=== PATIENT | male | born 1985 | race Two or more races ===

== ENCOUNTER 2025-01-05 12:21 | Emergency (ER) | payer MEDICAID, SELFPAY ==
[2025-01-05 12:44] VITALS: BP 157/96; PULSE 71; RESP 16; TEMP 36.9; O2SAT 95; BMI 28.5
--- NOTE | 2025-01-05 12:54 | XR_ITS ---
Examination: PA chest single view Technique: Upright PA chest single view Exam date and time: January 05, 2025 1312 hrs. Indications: Has ascites exposure 5 days ago followed by illness Findings: Normal heart size No pneumonia or pulmonary edema Intact osseous structures Impression: No pneumonia or pulmonary edema
--- NOTE | 2025-01-05 12:56 | PD.EDADULT ---
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 Has been having symptoms of being sick, described as body aches, joint pains, dizziness, fevers, for the last 1 to 2 weeks. Patient went to different emergency room, blood drawn and test were done and all came back normal. Patient denies any sore throat, chest pain, abdominal pain, diarrhea constipation or other complaints. No medication was taken prior travel. Related Data Home Medications ?Medication ?Instructions ?Recorded ?Confirmed benztropine 2 mg tablet 2 mg PO BID 09/09/20 09/09/20 bupropion HCl 300 mg 24 hr tablet, 300 mg PO QDAY 09/09/20 09/09/20 extended release clomipramine 50 mg capsule 100 mg PO HS 09/09/20 09/09/20 clonazepam 1 mg tablet 1 mg PO TID PRN Anxiety 09/09/20 09/09/20 diphenhydramine HCl 50 mg capsule 50 mg PO BID PRN Allergy Symptoms 09/09/20 09/09/20 (Banophen) fluoxetine 40 mg capsule 40 mg PO QDAY 09/09/20 09/09/20 haloperidol 10 mg tablet 10 mg PO BID 09/09/20 09/09/20 lithium carbonate 300 mg tablet 300 mg PO QAM 09/09/20 09/09/20 lithium carbonate 300 mg tablet 600 mg PO HS 09/09/20 09/09/20 propranolol 10 mg tablet 10 mg PO TID 09/09/20 09/09/20 quetiapine 400 mg tablet 800 mg PO HS 09/09/20 09/09/20 Previous Rx's ?Medication ?Instructions ?Recorded ciprofloxacin HCl 500 mg tablet 500 mg PO BID #20 tabs 09/05/20 metronidazole 500 mg tablet 500 mg PO QID #40 tabs 09/05/20 clindamycin HCl 300 mg capsule 300 mg PO TID #15 caps 08/06/24 mupirocin 2 % topical ointment 1 applic topical TID #15 grams 08/06/24 Allergies Allergy/AdvReac Type Severity Reaction Status Date / Time iodine Allergy Severe DIFF Verified 01/05/25 12:26 BREATHING Review of Systems Review of Systems Narrative Review of Systems: Review of system reviewed and within normal limits except mentioned in HPI ED Exam Narrative Physical exam: VITAL SIGNS: Reviewed. GENERAL APPEARANCE: Alert and interactive, follows commands, no acute distress, HEAD AND FACE: Non-traumatic. ENT: PERRL, pink conjunctivitis, eyelid no trauma, Mucous membrane moist. NECK: Supple, nontender, no nuchal rigidity. CHEST: No tenderness, no crepitus, no paradoxical movement, no retractions. LUNGS: Clear, well ventilated, symmetric, no rales, no wheezing, no ronchi, no stridor, good breath sounds bilaterally. HEART: Regular rate, regular rhythm, no murmur, no gallops. ABDOMEN: Soft, positive bowel sounds, nondistended, no guarding, nontender, no rebound, no masses, RECTAL: Deferred. GENITAL: Deferred. NEUROLOGICAL: Gross motor function intact sensory function intact, Appropriate for age. MUSCULOSKELETAL: low back nontender, full range of motion. EXTREMITIES: Nontender, full range of motion. SKIN: Color pink, dry, no rash, no lacerations, no abrasions, no contusions. LYMPHATICS: Deferred. Course Quality Measures none Orders Category Date Time Status Bedside COVID-19 Antigen Test NOW Care 01/05/25 12:54 Active Bedside Influenza A&B Antigen Test NOW Care 01/05/25 12:55 Active XR chest 1V Stat Exams 01/05/25 12:54 Completed CBC Stat Lab 01/05/25 13:06 Completed Comprehensive Metabolic Panel Stat Lab 01/05/25 13:06 Completed Hemoglobin A1C [Glycohemoglobin w (eAG)] Stat Lab 01/05/25 13:06 Completed Prothrombin Time with INR Stat Lab 01/05/25 13:06 Completed UA, C/S IF [Urinalysis, C/S if Indicated] Stat Lab 01/05/25 13:13 Completed Vital Signs Vital signs: Vital Signs Temperature 98.5 F 01/05/25 12:44 Pulse Rate 71 01/05/25 12:44 Respiratory Rate 16 01/05/25 12:44 Blood Pressure 157/96 H 01/05/25 12:44 Pulse Oximetry (%) 95 01/05/25 12:44 Oxygen Delivery Method Room Air 01/05/25 12:44 MDM Patient data External records reviewed:: None Clinical information provided by:: none Social determinants that could affect healthcare access:: mental health Patient has the following chronic illnesses:: History of schizophrenia How is presenting disease/condition affected by chronic disease/condition?: exacerbated by Evaluation data The following diagnostics were reviewed and interpreted by me:: lab results and radiology exam(s) Lab and/or radiology exams considered but not ordered:: none Interpretation Summary: Patient's workup all came back unremarkable including chest x-ray which is normal. Medications Medications considered but not ordered:: None Medication administrations:: None Consultations Consultation(s) initiated? (list below): No Diagnosis Differential Diagnosis ED Complaint MDM: Hypochondriasis, history of schizophrenia, generalized weakness Most likely diagnosis given after review of the tests above:: Hypochondriasis history of schizophrenia Admission Indicated Admission indicated?: not indicated Explain why admission is indicated or not indicated:: Stable Admission Request Was there a request for admission?: No Disposition Plan Disposition Plan: Discharge Discharge Attestation Discharge Attestation: The patient and all family members were given an opportunity to ask questions and understood the discharge instructions. Discharge instructions specifically effects, indications for sooner follow up or return to the emergency department, and the expected course of current diagnosis. 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 Has been having symptoms of being sick, described as body aches, joint pains, dizziness, fevers, for the last 1 to 2 weeks. Patient went to different emergency room, blood drawn and test were done and all came back normal. Patient denies any sore throat, chest pain, abdominal pain, diarrhea constipation or other complaints. No medication was taken prior travel. Laboratory couple came back normal including normal urinalysis and chest x-ray also came back normal. Result discussed with the patient. Patient is probably having hypochondriasis secondary to having schizophrenia. Patient appears nontoxic and hemodynamically stable. Patient discharged home and instructed to follow-up with primary care provider in 24 to 48 hours. Instructed to return to the emergency department immediately if worsening of symptoms Differential Diagnosis Differential Diagnosis: Hypochondriasis, history of schizophrenia, generalized weakness Lab Data 01/05/25 13:06 01/05/25 13:06 Labs: Lab Results 01/05/25 01/05/25 Range/Units 13:06 13:13 WBC 4.8 (3.8-10.6) Thou/mm3 RBC 5.15 (4.50-5.90) Miln/mm3 Hgb 16.5 H (13.5-16.0) g/dL Hct 47.0 (41.0-53.0) % MCV 91 (80-100) fL MCH 32.0 (25.0-35.0) pg MCHC 35.1 (31.0-37.0) g/dl RDW Std Deviation 43.3 (35.1-43.9) fL Plt Count 160 (140-440) Thou/mm3 Neut % (Auto) 68 (37-80) % Lymph % (Auto) 24 (10-50) % [place] % (Auto) 7 (0-12) % Eos % (Auto) 1 (0-10) % Baso % (Auto) 0 (0-2.5) % Neut # (Auto) 3.3 (1.8-7.7) Thou/mm3 Lymph # (Auto) 1.1 (1.0-4.8) Thou/mm3 [place] # (Auto) 0.3 (0.0-0.8) Thou/mm3 Eos # (Auto) 0.0 (0.0-0.5) Thou/mm3 Baso # (Auto) 0.0 (0.0-0.2) Thou/mm3 Immature Gran # (Auto) 0.00 (0.00-0.00) Thou/mm3 Absolute Nucleated RBC 0.00 (0.00-0.00) Thou/mm3 Immature Gran % 0 (0-0) % Nucleated RBC % 0 (0) /100 WBC PT 11.9 (9.0-12.2) Seconds INR 1.1 (0.9-1.3) Sodium 141 (136-145) mMol/L Potassium 3.7 (3.4-5.1) mMol/L Chloride 104 (98-107) mMol/L Carbon Dioxide 29.4 (20.0-31.0) mMol/L Anion Gap 8 (7-16) BUN < 5 L (9-23) mg/dL Creatinine 0.7 (0.6-1.3) mg/dL Estim Creat Clear Calc 184.5 (>60) mL/min eGFR > 60 (60 - ) See Note BUN/Creatinine Ratio 7 L (12-20) Ratio Glucose 99 (74-106) mg/dL Estimated Ave Glu mg/dL 85 (80-131) mg/dL Hemoglobin A1c 4.6 L (4.8-6.0) % Hgb Calculated Osmolality 278 (275-295) Calcium 9.9 (8.3-10.6) mg/dL Corrected Calcium 9.9 (8.5-10.1) mg/dL Total Bilirubin 0.6 (0.3-1.2) mg/dL AST 18 (0-34) U/L ALT 14 (10-49) U/L Alkaline Phosphatase 111 (46-116) U/L Total Protein 8.0 (5.7-8.2) gm/dL Albumin 4.8 (3.5-5.0) gm/dL Globulin 3.2 (2.3-3.5) gm/dL Albumin/Globulin Ratio 1.5 (1.2-2.2) Ur Collection Type Clean Catch Urine Color Yellow (Lt Yel-Yel) Urine Clarity Clear (Clear/Hazy) Urine pH 6.0 (5.0-7.0) Ur Specific [place] 1.013 (1.001-1.035) Urine Protein Negative (Neg - Trace) Urine Glucose (UA) Negative (Negative) Urine Ketones 1+ A (Negative) Urine Blood Negative (Negative) Urine Nitrite Negative (Negative) Urine Bilirubin Negative (Negative) Urine Urobilinogen (Auto) Negative (0.0-1.0) mg/dL Ur Leukocyte Esterase Negative (Negative) Urine RBC 1 (0-3) /hpf Urine WBC 2 (0-5) /hpf Ur Squamous Epith Cells < 1 (0-5) /hpf Urine Bacteria None (None) Ur Culture Indicated? Not Indicated Discharge Plan Plan Patient Disposition: HOME (Self Care) Disposition Comment: Stable Prescriptions/Referrals Prescriptions/Med Rec: No Action ciprofloxacin HCl 500 mg tablet 500 mg PO BID Qty: 20 0RF metronidazole 500 mg tablet 500 mg PO QID Qty: 40 0RF fluoxetine 40 mg capsule 40 mg PO QDAY diphenhydramine HCl [Banophen] 50 mg capsule 50 mg PO BID PRN (Reason: Allergy Symptoms) Patient Comments: take 1 capsule by mouth every morning and at bedtime if needed for STIFFNESS clonazepam 1 mg tablet 1 mg PO TID PRN (Reason: Anxiety) Patient Comments: take 1 tablet by mouth three times a day if needed propranolol 10 mg tablet 10 mg PO TID haloperidol 10 mg tablet 10 mg PO BID Patient Comments: take 1 tablet by mouth twice a day benztropine 2 mg tablet 2 mg PO BID Patient Comments: take 1 tablet by mouth twice a day clomipramine 50 mg capsule 100 mg PO HS Patient Comments: take 2 capsules by mouth at bedtime lithium carbonate 300 mg tablet 300 mg PO QAM Patient Comments: take 1 tablet by mouth every morning and 2 tablets at bedtime lithium carbonate 300 mg tablet 600 mg PO HS Patient Comments: take 1 tablet by mouth every morning and 2 tablets at bedtime bupropion HCl 300 mg tablet extended release 24 hr 300 mg PO QDAY Patient Comments: take 1 tablet by mouth once daily quetiapine 400 mg tablet 800 mg PO HS Patient Comments: take 2 tablets by mouth at bedtime mupirocin 2 % ointment 1 applic topical TID Qty: 15 0RF clindamycin HCl 300 mg capsule 300 mg PO TID Qty: 15 0RF Referrals: No Primary/Family,Physician [Primary Care Provider] - In 1 week Problem List Clinical Impression: Hypochondriasis Patient/Caregiver Discharge Instructions Discharge Activity: activity as tolerated Education Materials: Journaling for Mental Health Additional Instructions: Thank you for the opportunity for serving you today. You are stable for discharged . You are advised to: Follow-up with your PCP in 1 to 2 days Return to ED for worsening of symptoms Increase oral fluids Print Language: Malay Stand Alone Forms: Khushi Award Info., Patient Portal Info Letter PA/BI ARCHITECT Supervising Physician ARMANI/ROSA Supervising Physician: MD Vianca
[2025-01-05 13:20] LABS: Collection Type, Urine Clean Catch
[2025-01-05 13:27] LABS: Basophils % (Auto) 0 % (0-2.5); Eosinophils % (Auto) 1 % (0-10); Hemoglobin 16.5 g/dL (13.5-16.0); Immature Granulocytes % (Auto) 0 % (0-0); Lymphocytes # (Auto) 1.1 Thou/mm3 (1.0-4.8); Lymphocytes % (Auto) 24 % (10-50); Mean Corpuscular HGB Conc 35.1 g/dl (31.0-37.0); Mean Corpuscular Volume 91 fL (80-100); Monocytes # (Auto) 0.3 Thou/mm3 (0.0-0.8); Monocytes % (Auto) 7 % (0-12); Neutrophils # (Auto) 3.3 Thou/mm3 (1.8-7.7); Neutrophils % (Auto) 68 % (37-80); Nucleated Red Blood Cell % 0 /100 WBC (0); Platelet Count 160 Thou/mm3 (140-440); RDW Standard Deviation 43.3 fL (35.1-43.9); Red Blood Count 5.15 Miln/mm3 (4.50-5.90); White Blood Count 4.8 Thou/mm3 (3.8-10.6)
[2025-01-05 13:29] LABS: Bilirubin,Urine Negative (Negative); Blood,Urine Negative (Negative); Clarity,Urine Clear (Clear/Hazy); Color,Urine Yellow (Lt Yel-Yel); Culture Indicated,Urine Not Indicated; Glucose, Urine Negative (Negative); Ketones,Urine 1+ (Negative); Leukocyte Esterase,Urine Negative (Negative); Nitrite,Urine Negative (Negative); Protein,Urine Negative (Neg - Trace); RBC,Urine 1 /hpf (0-3); Specific Gravity,Urine 1.013 (1.001-1.035); Squamous Epithelial Cell,Urine < 1 /hpf (0-5); Urobilinogen,Urine Negative mg/dL (0.0-1.0); WBC,Urine 2 /hpf (0-5)
[2025-01-05 13:42] LABS: Glucose Estimated Average 85 mg/dL (80-131); Hemoglobin A1C 4.6 % Hgb (4.8-6.0)
[2025-01-05 14:05] LABS: Alanine Aminotransferase 14 U/L (10-49); Albumin, Serum 4.8 gm/dL (3.5-5.0); Albumin/Globulin Ratio 1.5 (1.2-2.2); Alkaline Phosphatase 111 U/L (46-116); Anion Gap 8 (7-16); Aspartate Amino Transferase 18 U/L (0-34); BUN/Creatinine Ratio 7 Ratio (12-20); Bilirubin,Total 0.6 mg/dL (0.3-1.2); Blood Urea Nitrogen < 5 mg/dL (9-23); Calcium 9.9 mg/dL (8.3-10.6); Calcium (Corrected) 9.9 mg/dL (8.5-10.1); Carbon Dioxide 29.4 mMol/L (20.0-31.0); Chloride 104 mMol/L (98-107); Creatinine (Component) 0.7 mg/dL (0.6-1.3); Estimated Creatinine Clearance 184.5 mL/min (>60); Globulin 3.2 gm/dL (2.3-3.5); Glucose 99 mg/dL (74-106); Osmolality,Calculated 278 (275-295); Potassium 3.7 mMol/L (3.4-5.1); Sodium 141 mMol/L (136-145); eGFR > 60 See Note
[2025-01-05 15:10] LABS: INR 1.1 (0.9-1.3); Prothrombin Time 11.9 Seconds (9.0-12.2)
[2025-01-05 18:00] VITALS: BP 142/86; PULSE 65; RESP 18; TEMP 36.8; O2SAT 96
== END 2025-01-05 18:00 | disposition home or self-care (01) ==
PROVIDERS: Nurse Practitioner Family; Emergency Provider Emergency Medicine
DX: F45.21 Hypochondriasis (principal); F20.9 Schizophrenia, unspecified; G40.909 Epilepsy, unspecified, not intractable, without status epilepticus; S06.9XAS Unspecified intracranial injury with loss of consciousness status unknown, sequela; Z91.041 Radiographic dye allergy status; X58.XXXS Exposure to other specified factors, sequela
CPT/HCPCS: 36415; 71045; 80053; 81001; 83036; 85025; 85610; 99283